=== PATIENT | male | born 1965 | race Caucasian/White ===

== ENCOUNTER 2017-10-01 01:51 | Emergency (ER) | payer BC ==
[2017-10-01] MEDS ORDERED: Ketorolac 30 MG/ML SDV IM ONE (02:44)
--- NOTE | 2017-10-01 02:45 | EDM.PDOC ---
ED HPI GENERAL MEDICAL PROBLEM - General Chief Complaint: Abdominal Pain Stated Complaint: RIGHT LOWER ABDOMINAL PAIN Time Seen by Provider: 10/01/17 02:15 Source of Information: Reports: Patient, RN History Limitations: Reports: No Limitations - History of Present Illness INITIAL COMMENTS - FREE TEXT/NARRATIVE: 51 yr male presents with abdominal pain. States he has been treated for kidney stone to the left abdomen this week and this is better. Now states pain is to right side. He has been taking Flomax and has some Pain medication, but hasn't taken. States it makes him feel poorly and doesn't really take the pain away. He does have a warm pack on and this makes the abdomen feel better. He is ambulatory and has family with him. Right Lower Abdomen Pain Score (Numeric/FACES): 8 - Related Data Allergies Allergy/AdvReac Type Severity Reaction Status Date / Time No Known Allergies Allergy Verified 10/01/17 02:36 Home Meds: Home Meds Acetaminophen/HYDROcodone [[place] 325-5 MG] 1 - 2 tab PO Q4H PRN 10/01/17 [ History] Tamsulosin [Tamsulosin 24 Hr] 0.4 mg PO BID 10/01/17 [History] ED ROS GENERAL - Review of Systems Review Of Systems: See Below Constitutional: Reports: No Symptoms Respiratory: Reports: No Symptoms Cardiovascular: Reports: No Symptoms GI/Abdominal: Reports: Abdominal Pain : Reports: Flank Pain. Denies: Dysuria, Hematuria Musculoskeletal: Reports: No Symptoms Skin: Reports: No Symptoms Neurological: Reports: No Symptoms Psychiatric: Reports: No Symptoms Hematologic/Lymphatic: Reports: No Symptoms Immunologic: Reports: No Symptoms ED EXAM, GI/ABD - Physical Exam Exam: See Below Exam Limited By: No Limitations General Appearance: Alert, No Apparent Distress Ears: Hearing Grossly Normal Nose: Normal Inspection Throat/Mouth: Normal Voice, No Airway Compromise Head: Atraumatic, Normocephalic Neck: Non-Tender Respiratory/Chest: No Respiratory Distress, Lungs Clear, Normal Breath Sounds Cardiovascular: Regular Rate, Rhythm GI/Abdominal Exam: Soft, Tender, Other (Pain to right, lateral abdomen/flank pain). No: Distended, Guarding, Rigid, Rebound (Male) Exam: Deferred Rectal (Males) Exam: Deferred Back Exam: Normal Inspection Extremities: Normal Range of Motion Neurological: Alert, Oriented, Normal Cognition Psychiatric: Normal Affect, Normal Mood Skin Exam: Warm, Dry, Normal Color Lymphatic: No Adenopathy Course - Vital Signs Last Recorded V/S: Last Vital Signs Temp 98.4 F 10/01/17 02:05 Pulse 76 10/01/17 02:05 Resp 18 10/01/17 02:05 BP 143/83 H 10/01/17 02:05 Pulse Ox 100 10/01/17 02:05 - Orders/Labs/Meds Orders: Active Orders 24 hr Category Date Time Status Kidney Stone Protocol [CT] Stat Exams 10/01/17 02:30 Taken URINALYSIS W/MICROSCOPIC [UA W/MICROSCOPIC] [URIN] Stat Lab 10/01/17 02:50 Ordered Labs: Laboratory Tests 10/01/17 10/01/17 Range/Units 02:50 03:25 WBC 11.6 H (4.0-11.0) K/uL RBC 4.56 (4.50-6.50) M/uL Hgb 13.1 (13.0-18.0) g/dL Hct 38.1 L (40.0-54.0) % MCV 84 (76-96) fL MCH 28.7 (27.0-32.0) pg MCHC 34.4 (31.0-35.0) g/dL RDW 12.7 (11.0-16.0) % Plt Count 252 (150-400) K/uL MPV 9.2 (6.0-10.0) fL Neut % (Auto) 87.0 H (45.0-70.0) % Lymph % (Auto) 7.2 L (20.0-40.0) % [place] % (Auto) 5.3 (3.0-10.0) % Eos % (Auto) 0.3 L (1.0-5.0) % Baso % (Auto) 0.2 (0.0-0.5) % Neut # (Auto) 10.09 H (2.00-7.50) K/uL Lymph # (Auto) 0.84 L (1.50-4.00) K/uL [place] # (Auto) 0.62 (0.20-0.80) K/uL Eos # (Auto) 0.03 L (0.04-0.40) K/uL Baso # (Auto) 0.02 (0.02-0.10) K/uL Urine Color Yellow Urine Appearance Clear (CLEAR) Urine pH 5.5 (5.0-8.0) Ur Specific [place] 1.015 (1.003-1.030) Urine Protein Negative (NEGATIVE) mg/dL Urine Glucose (UA) Negative (NEGATIVE) mg/dL Urine Ketones Negative (NEGATIVE) mg/dL Urine Occult Blood Moderate H (NEGATIVE) Urine Nitrite Negative (NEGATIVE) Urine Bilirubin Negative (NEGATIVE) Urine Urobilinogen 0.2 (0.2-1.0) E.U./dL Ur Leukocyte Esterase Negative (NEGATIVE) Urine RBC 50-75 H /HPF Urine WBC Not seen /HPF Ur Squamous Epith Cells Not seen /HPF Urine Bacteria Not seen /HPF Meds: Medications Discontinued Medications Generic Name Dose Route Start Last Admin Trade Name Freq PRN Reason Stop Dose Admin Ketorolac Tromethamine 30 mg 10/01/17 02:44 10/01/17 02:47 Toradol IM 10/01/17 02:45 30 mg ONETIME ONE Administration Ketorolac Tromethamine Confirm 10/01/17 02:50 10/01/17 02:49 Toradol Administered 10/01/17 02:51 Not Given Dose 30 mg .ROUTE .STK-MED ONE - Re-Assessments/Exams Free Text/Narrative Re-Assessment/Exam: 10/01/17 03:30 Pain improved with Toradol 30 mg IM. Rates pain "2" on scale 1- 10. 10/01/17 04:25 Pain continues to be improved. Will notify provider of pt continued pain and results of CT. Renal calculi noted of 5mm. Pain to right flank area this am and improved to left back from earlier in week. Moderate amount hematuria noted per U/A w micro. Lab results reviewed with pt. CT results reviewed with pt. Recommend 4 (16 oz) bottles of water daily and to strain the urine and keep any gravel/stones. Recommend taking 1/2 dose of pain medication, as pt was feeling foggy in thoughts with taking one whole tablet. RTC or ER if symptoms persist or worsen. Pt reports Dr Sahara MD will follow-up with a phone call today after the clinic hours begin. Departure - Departure Time of Disposition: 04:25 Disposition: Home, Self-Care 01 Condition: Good Clinical Impression: Renal calculus, right - Discharge Information Instructions: Kidney Stones, Cscr-bo-Gyur, Dietary Guidelines to Help Prevent Kidney Stones Referrals: PCP,None [Primary Care Provider] - Forms: ED Department Discharge, ED Return to Work/School Form Additional Instructions: Ailin will call you with the report in the AM when she gets in to the clinic. Drink plenty of water during the day. Continue taking Flomax 0.4mg twice a day. Strain your urine. You can bring in the stone to be analyzed if you catch one. Try taking 1/2 tab of pain pill with food. Follow up as needed. 10/01/17 04:25 Pain continues to be improved. Will notify provider of pt continued pain and results of CT. Renal calculi noted of 5mm. Pain to right flank area this am and improved to left back from earlier in week. Moderate amount hematuria noted per U/A w micro. Lab results reviewed with pt. CT results reviewed with pt. Recommend 4 (16 oz) bottles of water daily and to strain the urine and keep any gravel/stones. Recommend taking 1/2 dose of pain medication, as pt was feeling foggy in thoughts with taking one whole tablet. RTC or ER if symptoms persist or worsen. Pt reports Dr Sahara MD will follow-up with a phone call today after the clinic hours begin. - Problem List & Annotations (1) Renal calculus, right SNOMED Code(s): 53039395 Code(s): N20.0 - CALCULUS OF KIDNEY Status: Acute - Problem List Review Problem List Initiated/Reviewed/Updated: Yes - My Orders Last 24 Hours: My Active Orders 10/01/17 02:30 Kidney Stone Protocol [CT] Stat 10/01/17 02:50 URINALYSIS W/MICROSCOPIC [UA W/MICROSCOPIC] [URIN] Stat - Assessment/Plan Last 24 Hours: My Active Orders 10/01/17 02:30 Kidney Stone Protocol [CT] Stat 10/01/17 02:50 URINALYSIS W/MICROSCOPIC [UA W/MICROSCOPIC] [URIN] Stat Plan: 10/01/17 04:25 Pain continues to be improved. Will notify provider of pt continued pain and results of CT. Renal calculi noted of 5mm. Pain to right flank area this am and improved to left back from earlier in week. Moderate amount hematuria noted per U/A w micro. Lab results reviewed with pt. CT results reviewed with pt. Recommend 4 (16 oz) bottles of water daily and to strain the urine and keep any gravel/stones. Recommend taking 1/2 dose of pain medication, as pt was feeling foggy in thoughts with taking one whole tablet. RTC or ER if symptoms persist or worsen. Pt reports Dr Sahara MD will follow-up with a phone call today after the clinic hours begin. Pt discharged ambulatory. continue with Flomax and pain medication 1/2 tablet every 4-6 hour as needed for pain.
[2017-10-01] MEDS ORDERED: Ketorolac 30 MG/ML SDV ONE (02:50)
--- NOTE | 2017-10-03 10:23 | CT ---
DATE OF SERVICE: 10/01/17 CLINICAL DATA: abdominal pain UNENHANCED ABDOMEN AND PELVIC CT: Multislice acquisition through the abdomen and pelvis without IV or oral contrast was performed. Comparison is made to a prior exam dated 10/01/2007. Breathing motion artifact degrades image quality. The lungs bases are clear. The unenhanced liver appears normal. No focal hepatic lesions. The gallbladder appears normal. The spleen appears normal. 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 The pancreas appears normal. The right and left adrenals appears normal. There are bilateral nonobstructing renal calculi. There is a 6 mm left ureteral calculi located in the left ureter at the L5 level. There is hydronephrosis and hydroureter proximal to it, consistent with obstruction. No hydronephrosis or hydroureter on the right. The bladder is partially fluid filled. It appears normal. No evidence of appendicitis. There is a moderate amount of stool present throughout the colon and rectum. There is diverticulosis of the descending and sigmoid colon. No evidence of diverticulitis. The prostate is mildly enlarged. No free air. No free fluid. No dilated loops of bowel. No adenopathy. No aortic aneurysm. There is an umbilical hernia containing fat. There are bilateral inguinal hernias containing fat. IMPRESSION: 1. 6 mm left ureteral calculi with obstruction. Bilateral nonobstructing renal calculi. 2. Multiple other findings as discussed above. [id number] [facility]
== END 2017-10-01 04:28 | disposition home or self-care (01) ==
LOC: LB.ED 01:51
DX: N13.2 Hydronephrosis with renal and ureteral calculous obstruction (principal)
CPT/HCPCS: 36415; 74176; 81001; 85025; 99284-25; J1885

== ENCOUNTER 2018-08-11 07:57 | Day surgery (SDC) | payer BC ==
[~2018-08-11 07:57] MED LIST: Metoclopramide 10 MG/2 ML SDV IV PRN; Sodium Chloride 0.9% 1,000 ML IV SCH
[2018-08-11] MEDS ORDERED: Propofol 200 MG/20 ML SDV ONE (10:30)
--- NOTE | 2018-08-11 15:03 | OR ---
DATE OF OPERATION: 08/11/2018 PREOPERATIVE DIAGNOSIS: Screening colonoscopy. POSTOPERATIVE DIAGNOSIS: Screening colonoscopy. PROCEDURE: Colonoscopy with polypectomy. ANESTHESIA: MAC. ESTIMATED BLOOD LOSS: Minimal. COMPLICATIONS: None. INDICATION FOR PROCEDURE: The patient is a 52-year-old male, here today for his first screening colonoscopy. Denies any change in bowel habits. Denies any family history of colon cancer. DESCRIPTION OF PROCEDURE: Informed consent was obtained from the patient. The patient was taken to the operating room and placed on the table in left lateral decubitus position. Monitored anesthesia care was administered. Digital rectal exam was performed and was normal. Colonoscope then advanced through the anus and directed toward the cecum. Cecum was reached and identified by appendiceal orifice and ileocecal valve. Colonoscope then slowly withdrawn. He did have moderate sigmoid diverticulosis. He also had 1 small sessile sigmoid polyp removed by cold biopsy polypectomy. Colonoscope then retroflexed in the rectum. The rectum was also unremarkable. Colonoscope then withdrawn. FINDINGS: Sigmoid diverticulosis and sigmoid polyp. RECOMMENDATIONS: Would recommend repeat surveillance colonoscopy in 5 years due to polyps. I would also recommend high-fiber diet due to diverticula. KATHY/COREY /[id number]
== END 2018-08-11 12:00 | disposition home or self-care (01) ==
LOC: LB.SDS 07:57
PROVIDERS: ATTEND Surgery
DX: Z12.11 Encounter for screening for malignant neoplasm of colon (principal); D12.5 Benign neoplasm of sigmoid colon; K57.30 Diverticulosis of large intestine without perforation or abscess without bleeding; I10 Essential (primary) hypertension; Z79.899 Other long term (current) drug therapy
CPT/HCPCS: 45380; 88305; J2704; J7030